=== PATIENT | male | born 1960 | race Caucasian/White ===

== ENCOUNTER 2019-07-07 15:00 | Emergency (ER) | payer OTHER, SELFPAY ==
--- NOTE | 2019-07-07 15:11 | ED.EXTPRO ---
HPI - Extremity Problem <AYESHA Zuleta - Last Filed: 07/07/19 17:24> General Chief complaint: Extremity Injury, Upper Stated complaint: finger injury Time Seen by Provider: 07/07/19 15:03 Source: patient Mode of arrival: Ambulatory Limitations: no limitations History of Present Illness HPI Narrative: This is a 59-year-old male, nonsmoker, who presents to ED with left 4th distal finger laceration and bleeding involving nail transversely. 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 Right dominant hand. Tetanus immunization is not updated at this time. Patient is not taking anticoagulant or platelets at this time. Patient states is able to move his fingers without difficulty and intact sensation. Related Data Allergies Allergy/AdvReac Type Severity Reaction Status Date / Time No Known Drug Allergies Allergy Verified 07/07/19 15:12 Review of Systems <AYESHA Zuleta - Last Filed: 07/07/19 17:24> Review of Systems Narrative: General: Denies fever, chills, fatigue, malaise, sweats. HEENT: Denies sinus pain, ear pain, sore throat, difficulty swallowing, dizziness. Respiratory: Denies dyspnea, cough, wheezing, hemoptysis, sputum. Cardiovascular: Denies chest pain, palpitations, orthopnea, edema. Gastrointestinal: Denies nausea, vomiting, abdominal pain, diarrhea, constipation, melena. : Denies dysuria, frequency, incontinence, hematuria, urinary retention. Musculoskeletal: See HPI Skin: See HPI Neurologic: Denies weakness, headache, numbness, change in speech, confusion, seizures, incoordination. Psychiatric: No concerning psychosocial issues. 12-point review of systems is negative except for those stated above. Patient History <AYESHA Zuleta - Last Filed: 07/07/19 17:24> Medical History No significant past medical history (Acute) Surgical History No pertinent past surgical history (Acute) Social History Smoking Status: Never smoker Smoking Status: Never smoker Exam <AYESHA Zuleta - Last Filed: 07/07/19 17:24> Narrative Exam Narrative: General appearance: well developed, well nourished, in no acute distress. Head: normocephalic, atraumatic, no scalp lesions, non-tender. ENT: Bilateral auditory canals and tympanic membranes clear. Hearing grossly intact. Nose without bleeding, purulent discharge, septal hematoma or deviation. Turbinate without erythema or swelling. Facial sinuses nontender to palpate. Mucous membrane moist, no mucosal lesion. Throat without erythema, tonsillar hypertrophy or exudate. Uvula in midline, airway patent. Neck/Thyroid: neck supple, full range of motion, no visible masses or meningeal signs. No JVD, non-tender without lymphadenopathy. Skin: Slow oozing bleeding from left 4th distal finger under the nail. Transverse mid laceration through left 4th nail. Ecchymosis on left 4th phalange. Warm and dry and appropriate color for ethnicity. Heart: no clubbing, no cyanosis, no edema. S1 and S2 normal. RRR w/o murmurs, clicks, or bruits. Lungs: Breathing even and unlabored. No stridor. No accessory muscles used. Able to speak in full sentences. Chest: normal shape and expansion. Abdomen: non-obese, non-distended. Neurologic: alert and oriented. Cognitive exam, JEWEL HOLE GAUGER and PNS grossly intact on informal exam. Psych: good eye contact, normal affect. Initial Vital Signs Initial Vital Signs: Vital Signs Temperature 97.9 F 07/07/19 15:12 Pulse Rate 76 07/07/19 15:12 Respiratory Rate 18 07/07/19 15:12 Blood Pressure 160/74 H 07/07/19 15:12 Pulse Oximetry 99 07/07/19 15:12 Extrem Left upper extremity: hand Details: abnormal to inspection, neuromotor exam normal, neurosensory exam normal, tendon exam normal, normal ROM of fingers, laceration (transverse laceration in left 4th nail/distal finger) and ecchymosis <Morales Drake DO - Last Filed: 07/08/19 08:54> Initial Vital Signs Initial Vital Signs: Vital Signs Temperature 97.9 F 07/07/19 15:12 Pulse Rate 76 07/07/19 15:12 Respiratory Rate 18 07/07/19 15:12 Blood Pressure 160/74 H 07/07/19 15:12 Pulse Oximetry 99 07/07/19 15:12 Procedures <AYESHA Zuleta - Last Filed: 07/07/19 17:24> Laceration Repair Laceration 1: Site: hand (4th distal finger involving transverse lac on nail) Side (If applicable): left Size (cm): 1.5 Description: linear Pre-repair: wound explored and irrigated extensively Skin layer closed with: dermabond Orthopedic Splinting/Casting Injury #1: Side: left Upper Extremity Injury Location: finger (4th ) Upper Extremity Immobilizer: aluminum form splint (finger) Post splinting neuro exam: intact Post splinting vascular exam: intact Placed by: Nursing Scores <AYESHA Zuleta - Last Filed: 07/07/19 17:24> GCS Will coma scale eye opening: Spontaneous Will coma scale verbal response: Orientated [place] coma scale motor response: Obey commands [place] coma scale total score: 15 Course <AYESHA Zuleta - Last Filed: 07/07/19 17:24> Orders Ordered: Discontinued Medications Diphtheria/Tetanus/Acell Pertussis (Adacel) 0.5 ml IM .ONCE ONE Stop: 07/07/19 15:11 Last Admin: 07/07/19 15:29 Dose: 0.5 ml Documented by: WISAM Vital Signs Vital signs: Vital Signs - 8 hr 07/07/19 15:12 07/07/19 16:43 Temperature 97.9 F Pulse Rate 65 Pulse Rate [Right] 76 Respiratory Rate 18 Blood Pressure 157/74 H Blood Pressure [Left Arm] 160/74 H Pulse Oximetry 99 99 <Morales Drake DO - Last Filed: 07/08/19 08:54> Orders Ordered: Discontinued Medications Diphtheria/Tetanus/Acell Pertussis (Adacel) 0.5 ml IM .ONCE ONE Stop: 07/07/19 15:11 Last Admin: 07/07/19 15:29 Dose: 0.5 ml Documented by: HOPEHT Vital Signs Vital signs: Vital Signs - 8 hr 07/07/19 15:12 07/07/19 16:43 Temperature 97.9 F Pulse Rate 65 Pulse Rate [Right] 76 Respiratory Rate 18 Blood Pressure 157/74 H Blood Pressure [Left Arm] 160/74 H Pulse Oximetry 99 99 MDM - Extremity (Nontraumatic) <AYESHA Zuleta - Last Filed: 07/07/19 17:24> Differential Diagnosis Differential diagnosis: Likely other (Finger fracture, finger laceration involving nail) Medical Records Attestation: I reviewed the patient's medical records. Imaging Data XR-Finger LT: Radiologist's Impression: [address] [address] XRay Report Signed Patient: Joe Kendrick#: [id number] : 9Acct:[id number] Age/Sex: 59 / MDate of Service: 07/07/19 Loc: ED Accession Number: [id number] Procedure: XR finger LT min 2V Ordering Provider: Nolan Bernard PROCEDURE: XR FINGER LT MIN 2V INDICATIONS: 4th finger laceration in distal finger/nail TECHNIQUE: AP hand, 2 views of the fourth finger(s) acquired. COMPARISON: None. FINDINGS: Bones: No fractures or dislocations. No suspicious bony lesions. Soft tissues: No suspicious soft tissue calcifications. IMPRESSION: No osseous trauma found, no foreign body. Laceration evident at the fourth digit distal tuft area. Dictated by: Juan Diego Estrada M.D. on 07/07/2019 at 15:28 Approved by: Juan Diego Estrada M.D. on 07/07/2019 at 15:29 MDM Narrative Medical decision making narrative: Patient dominant hand right. Tdap has been updated today. X-ray test on left 4th finger does not show foreign body, fracture or dislocation. Wound irrigated well and transverse laceration involving left nail repaired with Dermabond. Return precautions were discussed with the patient including signs and symptoms for infection and affected finger protected by finger splint. Wound care discussed with the patient. Patient verbalized understanding and agrees with the treatment plan. Discharge Plan Departure Patient Disposition: Home Clinical Impression: Laceration of finger of left hand with damage to nail Qualifiers: Encounter type: initial encounter Finger: ring finger Foreign body presence: without foreign body Qualified Code(s): S61.315A - Laceration without foreign body of left ring finger with damage to nail, initial encounter Discharge Date/Time: 07/07/19 16:45 Instructions: DI for Laceration Repair With Dermabond, DI for Laceration Repair -- Finger Activity Restrictions/Additional Instructions: You have been diagnosed with [left 4th distal finger laceration involving nail which repaired with Dermabond]. What to do: *Take your medications as directed. Please take [id number] Tylenol and or Motrin as needed for discomfort. Cool pack next 24-48 hours frequently for swelling and discomfort. Laceration has been repaired with Dermabond. Please use finger splint to protect laceration repair. Tdap has been provided today. Please do not get your wound soaked in the water until the laceration has healed. Keep your dressing intact for next 24 hrs. After then, you could remove your dressing, wash with soap and water. Pat dry with clean papertowel and dress it. Please avoid using oil based ointment, cream, lotion and etc since this may make dermabond lose and remove prematurely. Dermabond will come off in 5-7 days on its own. Do not peel this off or pick on it. You can change dressing as needed and daily. Please monitor for signs and symptoms for infection such as increasing redness, swelling, warmth, pain, fever, purulent discharge. If this occurs, please return to ED or follow up with your primary care physician since your wound may be infected. Please follow up with your primary care provider in 2-3 days for recheck wound. Please keep your wound clean, dry and intact all times. Referrals: [facility] [Outside]
[2019-07-07 15:12] VITALS: BP 160/74; PULSE 76; RESP 18; TEMP 36.6; O2SAT 99
[2019-07-07] MEDS: TET,DIPH,PERTUSS(ACELL),VAC/PF 0.5 ML SYRINGE IM (15:29)
--- NOTE | 2019-07-07 16:38 | PC.NURSE ---
put tube guaze and finger cage on wound. Instructed pt on use and wound care. Pt verbalizes understanding.
[2019-07-07 16:43] VITALS: BP 157/74; PULSE 65; O2SAT 99
== END 2019-07-07 16:45 | disposition home or self-care (01) ==
PROVIDERS: Emergency Provider Nurse Practitioner Family
DX: S61.315A Laceration without foreign body of left ring finger with damage to nail, initial encounter (principal); W22.8XXA Striking against or struck by other objects, initial encounter; Z23 Encounter for immunization
CPT/HCPCS: 73140; 90471; 99283; 90715